=== PATIENT | male | born 1945 | race Caucasian/White ===

== ENCOUNTER → 2017-10-12 | Outpatient (CLI) | payer MEDICARE, OTHER ==
[~2017-10-12] MED LIST: ADULT LOW DOSE81 MG PO; ALFALFA650 MG PO; ASPIRIN 81MG TA81 MG PO; ATIVAN GENERIC0.5 MG PO; BUSPAR 10MG TAB10 MG PO; CALCIUM 600-D1 TAB PO; CARBIDOPA AND L1 TA1 PO; CENTRAL-VITE1 EACH PO; CO ENZYME Q-1050 MG PO; COREG 6.25MG6.25 MG PO; CRANBERRY PO; DIAZEPAM5 MG PO; ELMIRON 100MG100 M1 PO; FINASTERIDE5 MG PO; FLOMAX 0.4MG C0.4 MG PO; GARLIC1250 MG PO; GINKO BILOBA60 MG PO; GUANFACINE1 MG PO; HYDROCODONE-APA1 TA2 PO; IMDUR 60MG. TAB60 MG PO; LEVAQUIN 750 M750 MG PO; LISINOPRIL 10MG10 MG PO; MILK THISTLE200 M1 PO; NITROGLYCERIN0.4 MG SL; OMEPRAZOLE20 MG PO; PAROXETINE20 M1 PO; POTASSIUM CHLO10 ME3 PO; PYRIDIUM 200MG200 MG PO; PYRIDIUM200 M1 PO; RISPERDAL 0.50.5 MG NG; SIMVASTATIN80 MG PO; VITAMIN B50 B-C1 TAB SL; ZEBETA 5 MG TABL5 MG PO; ZIAC 5 MG-6.251 TAB PO; ZIPRASIDONE HCL20 MG PO; ZOFRAN ODT4 MG PO
--- NOTE | 2017-10-12 18:14 | RADIOLOGY REPORT PS360 ---
CT ABD PELVIS W/O CONTRAST CLINICAL INDICATION: Left-sided flank pain, hematuria RENAL COLIC ORDERING PHYSICIAN: Ed Chou MD PATIENT AGE: 71 years COMPARISON: 07/18/2016 TECHNIQUE: Axial images obtained with sagittal and coronal reformats. PROCEDURE: Oral Contrast: None IV Contrast: None . FINDINGS: The lung bases are clear. The liver, gallbladder, spleen, and adrenal glands and pancreas have an unremarkable unenhanced appearance. There are bilateral renal cysts. There are bilateral renal calculi. The largest stone is in the left renal pelvis measuring 10 x 8 mm causing some mild dilatation of the left renal pelvis. The stone is at the ureteropelvic junction. There is mild stranding of the left parapelvic fat which could be related to underlying infection. No ureteral calculus is evident. No ureteral dilatation. No evidence of appendicitis or diverticulitis. There is a fusiform abdominal aortic aneurysm which measures 3.1 x 3.2 cm. The aorta measures 2.2 cm at the bifurcation in the proximal right common iliac measures 1.4 cm while the left common iliac measures 1.5 cm. No intestinal obstruction or free air is evident. There is mild diverticulosis of the sigmoid colon no evidence of diverticulitis. No acute bony findings. Degenerative changes of the lumbar spine with scoliosis convex left. IMPRESSION: 1. 10 x 8 mm left renal pelvic stone with mild obstructive uropathy. Bilateral nephrolithiasis. 2. Mild fusiform dilatation of the infrarenal abdominal aorta at 3.2 cm. 3. Other nonacute findings as described
== END ==
LOC: RAD 15:11
DX: N23 Unspecified renal colic (principal)